=== PATIENT | female | born 1995 | race Caucasian/White ===

== ENCOUNTER 2017-07-30 17:16 | Emergency (ER) | payer OTHER ==
[~2017-07-30] VITALS: Ht 177.8 cm; Wt 141.5 kg
[~2017-07-30 17:16] MED LIST: Z.0.NO CURRENT MEDS
[2017-07-30 17:23] VITALS: BP 147/98; PULSE 92; RESP 18; TEMP 98.3; O2SAT 99
[2017-07-30] MEDS ORDERED: SPRI28TA PO (18:00)
[2017-07-30] MEDS ORDERED: BUTA1CAP PO (18:00)
--- NOTE | 2017-07-30 18:04 | PD ---
HPI Chief Complaint: Headache Time Seen by Provider: 17:52 Travel History International Travel<30 days: No Contact w/Intl Traveler<30days: No Traveled to known affect area: No History of Present Illness HPI Patient gives a history of about 7 days worth of a headache which initially responded to Motrin, but then returns so she went to her chiropractor who did an adjustment any seem to take it away. Then it returned and she went back to her dog who prescribed Fioricet. Which seemed to take it away somewhat but it seemed to make her stools soft. And then the headache returned, now the headache is still over the same left-sided of her face. No photophobia. Denies any nausea vomiting diarrhea rash or fever She was advised to come to the ER to get a CAT scan to ensure that she does not have any other alternative reason for her headache. Her mother has history of brain aneurysm. Patient has allergy to cefuroxime states that she develops hives Past medical and surgical history significant for bipolar disorder neurofibromatosis and asthma. PFSH Past Medical History Bipolar Disorder: Yes (PER PT.) Cancer: No Cardiovascular Problems: No Diabetes: No Diminished Hearing: No Glaucoma: No Hepatitis: No Hiatal Hernia: No Hypertension: No Medical other: Yes (NEUROFIBROMATOSIS) Respiratory: Yes (ASTHMA) Immunizations Current: Yes Thyroid Disease: No Tetanus Vaccination: Unknown ?: Not LMP: 4 days ago Past Surgical History Other Surgery: No Social History Alcohol Use: No Tobacco Use: No Substance Use: No Allergies-Medications (Allergen,Severity, Reaction): Coded Allergies: cefuroxime (Unverified Allergy, Severe, CEFZIL---RASH, 07/30/17) Reported Meds & Prescriptions Reported Meds & Active Scripts Active Flexeril (Cyclobenzaprine HCl) 10 Mg Tab 10 Mg PO TID Reported Fioricet (Cdthofbemk-Gkycpcrwwlxna-Htqrthvv) 50-300-40 Mg Cap 1 Cap PO Q4H PRN Sprintec 28 (Norgestimate-Ethinyl Estradiol) 0.25-35 mg-Mcg Tab 1 Tab PO DAILY Review of Systems General / Constitutional: No: Fever Eyes: No: Visual changes HENT: Positive: Headaches Cardiovascular: No: Chest Pain or Discomfort Respiratory: No: Shortness of Breath Gastrointestinal: No: Abdominal Pain Genitourinary: No: Dysuria Musculoskeletal: No: Pain Skin: No Rash Neurologic: No: Weakness Psychiatric: No: Depression Endocrine: No: Polydipsia Hematologic/Lymphatic: No: Easy Bruising Physical Exam Narrative GENERAL: SKIN: Warm and dry. HEAD: Atraumatic. Normocephalic. EYES: Pupils equal and round. No scleral icterus. No injection or drainage. ENT: No nasal bleeding or discharge. Mucous membranes pink and moist. NECK: Trachea midline. No JVD. CARDIOVASCULAR: Regular rate and rhythm. RESPIRATORY: No accessory muscle use. Clear to auscultation. Breath sounds equal bilaterally. GASTROINTESTINAL: Abdomen soft, non-tender, nondistended. MUSCULOSKELETAL: Extremities without clubbing, cyanosis, or edema. No obvious deformities. NEUROLOGICAL: Awake and alert. No obvious cranial nerve deficits. Motor grossly within normal limits. Five out of 5 muscle strength in the arms and legs. Normal speech. PSYCHIATRIC: Appropriate mood and affect; insight and judgment normal. Data Data Last Documented VS Vital Signs Date Time Temp Pulse Resp B/P (MAP) Pulse Ox O2 Delivery O2 Flow Rate FiO2 07/30/17 19:02 18 100 Room Air 07/30/17 17:23 98.3 92 147/98 (114) Orders Orders Ct Brain W/O Iv Contrast(Rout) (07/30/17 17:52) Ed Urine Pregnancytest Poc (07/30/17 17:52) Ed Discharge Order (07/30/17 19:00) MDM Medical Decision Making Medical Screen Exam Complete: Yes Emergency Medical Condition: Yes Medical Record Reviewed: Yes Differential Diagnosis Intracranial hemorrhage versus mass versus sinusitis Narrative Course CT head was negative for any aneurysm, intracranial hemorrhage, brain mass, skull fracture, or sinusitis. Diagnosis Primary Impression: Cephalgia Patient Instructions: General Instructions, Tension Headache (ED) Additional Instructions: It is highly recommended that he did not use these medications (Ultram, baclofen ) while engaging in use of heavy machinery, driving or using any machinery that may be harmful to you. It is best to use at nighttime when planning on resting. As previously mentioned CT scan does not show any brain mass any tumors any brain bleed or any evidence of sinus infection nor any evidence of an aneurysm. However it is highly recommended that you have an outpatient MRI of your brain to fully exclude that possibility. Scripts Tramadol (Ultram) 50 Mg Tab 50 MG PO Q8H Y for PAIN, #15 TAB 0 Refills Prov: Lightburn,Dimas Ganesh MD 07/30/17 Baclofen (Baclofen) 10 Mg Tab 10 MG PO TID, #21 TAB 0 Refills Prov: Dimas Joya MD 07/30/17 Disposition: 01 DISCHARGE HOME Condition: Stable Dimas Joya MD Jul 30, 2017 18:04
--- NOTE | 2017-07-30 18:52 | RADRPT ---
EXAM DATE/TIME: 07/30/2017 18:25 [facility] COMPARISON: No previous studies available for comparison. INDICATIONS : Headache for one week. RADIATION DOSE: 60.21 CTDIvol (mGy) MEDICAL HISTORY : None SURGICAL HISTORY : None. ENCOUNTER: Initial ACUITY: 1 week PAIN SCALE: 5/10 LOCATION: cranial TECHNIQUE: Multiple contiguous axial images were obtained of the head. Using automated exposure control and adj ustment of the mA and/or kV according to patient size, radiation dose was kept as low as reasonably a chievable to obtain optimal diagnostic quality images. DICOM format image data is available electro nically for review and comparison. FINDINGS: CEREBRUM: The ventricles are normal for age. No evidence of midline shift, mass lesion, hemorrhage or acute in farction. No extra-axial fluid collections are seen. POSTERIOR FOSSA: The cerebellum and brainstem are intact. The 4th ventricle is midline. The cerebellopontine angle i s unremarkable. EXTRACRANIAL: The visualized portion of the orbits is intact. SKULL: The calvaria is intact. No evidence of skull fracture. CONCLUSION: Normal examination. Royce Fuentes MD on July 30, 2017 at 18:50 Board Certified Radiologist. This report was verified electronically.
[2017-07-30] MEDS ORDERED: CYCL10TA PO (18:58)
[2017-07-30] MEDS ORDERED: TRAM50 PO (19:07)
[2017-07-30] MEDS ORDERED: BACL10TA PO (19:07)
[2017-07-30 19:15] VITALS: BP 146/76
== END 2017-07-30 20:24 | disposition home or self-care (01) ==
LOC: PHED 17:16
DX: R51 Headache (principal)
CPT/HCPCS: 70450; 84703; 99283